=== PATIENT | female | born 1980 | race Caucasian/White ===

== ENCOUNTER 2016-08-12 02:25 | Inpatient (IN) | payer OTHER ==
[2016-08-12 02:59] LABS: APPEARANCE,URINE CLEAR; BILIRUBIN,URINE NEGATIVE (NEGATIVE); GLUCOSE, URINE NEGATIVE (NEGATIVE); KETONES,URINE NEGATIVE (NEGATIVE); LEUKOCYTE ESTERASE,URINE NEGATIVE (NEGATIVE); NITRITE,URINE NEGATIVE (NEGATIVE); PROTEIN,URINE NEGATIVE (NEGATIVE); URINE SPECIFIC GRAVITY 1.008; UROBILINOGEN,URINE NEGATIVE mg/dL (<2.0)
[2016-08-12 03:39] LABS: ABSOLUTE EOSINOPHILS # (AUTO) 0.1 10^3/uL (0.0-0.6); ABSOLUTE LYMPHOCYTES (AUTO) 2.6 10^3/uL (0.5-4.7); ABSOLUTE MONOCYTES (AUTO) 0.7 10^3/uL (0.1-1.4); ABSOLUTE NEUT (AUTO) 10.2 10^3/uL (1.7-8.2); BASOPHILS % (AUTO) 0.3 % (0-2); EOSINOPHILS % (AUTO) 0.8 % (0-6); HEMOGLOBIN 12.8 g/dL (12.0-15.5); HGB HCT DIFFERENCE 0.4; LYMPHOCYTES % (AUTO) 18.9 % (13-45); MEAN CORPUSCULAR HEMOGLOBIN 27.8 pg (27.0-33.4); MEAN CORPUSCULAR HGB CONC 33.5 g/dL (32.0-36.0); MEAN CORPUSCULAR VOLUME 83 fl (80-97); MONOCYTES % (AUTO) 5.1 % (3-13); RED BLOOD COUNT 4.58 10^6/uL (3.72-5.28); RED CELL DISTRIBUTION WIDTH 13.9 % (11.5-14.0); SEGMENTED NEUTROPHILS % (AUTO) 74.9 % (42-78); WHITE BLOOD COUNT 13.7 10^3/uL (4.0-10.5)
[2016-08-12 03:40] LABS: URINE BARBITURATES SCREEN NEGATIVE; URINE METHADONE SCREEN NEGATIVE; URINE OPIATES LOW NEGATIVE; URINE PHENCYCLIDINE SCREEN NEGATIVE
[2016-08-12] MEDS ORDERED: OXYTOCIN/NORMAL SALINE 0 UNIT/0 ML RTUINJ ONE (04:20)
[2016-08-12] MEDS ORDERED: LIDOCAINE 1% INJ-PF (10 MG/ML) 30 ML SDV ONE (04:20)
[2016-08-12] MEDS ORDERED: MISOPROSTOL 0.2 MG TABLET ONE (04:20)
[2016-08-12] MEDS ORDERED: CITRIC ACID/SODIUM CITRATE ORAL SOLN 15 ML UDCUP ONE (04:41)
[2016-08-12] MEDS ORDERED: CEFAZOLIN 2 GM/D5W RTU 2 GM/50 ML RTUPB IV ONE (04:41)
[2016-08-12] MEDS ORDERED: MEASLES,MUMPS&RUBELLA VACC/PF 0.5 ML VIAL SUBCUT PRN (04:49)
[2016-08-12] MEDS ORDERED: RINGERS SOLUTION,LACTATED 1,000 ML IV PRN (04:49)
[2016-08-12] MEDS ORDERED: ACETAMINOPHEN 325 MG TABLET PO PRN (04:49)
[2016-08-12] MEDS ORDERED: DIPH/PERTUSS(ACELL)/TETANUS VAC/PF 0.5 ML SYR (>=10YO) IM PRN (04:49)
[2016-08-12] MEDS ORDERED: SIMETHICONE 80 MG TAB.CHEW PO PRN (04:49)
[2016-08-12] MEDS ORDERED: PROMETHAZINE HCL INJ 25 MG/1 ML VIAL IV PRN ×2 (04:49→05:44)
[2016-08-12] MEDS ORDERED: OXYCODONE-ACETAMINOPHEN 5-325 MG TABLET PO PRN (04:49)
[2016-08-12] MEDS ORDERED: OXYTOCIN/NORMAL SALINE 1,000 ML IV PRN (04:49)
[2016-08-12] MEDS ORDERED: ACETAMINOPHEN 100 ML IV PRN (04:49)
[2016-08-12] MEDS ORDERED: EPHEDRINE SULFATE INJ 50 MG/1 ML AMPULE ONE (04:50)
[2016-08-12] MEDS ORDERED: OXYTOCIN 10 UNIT/ML VIAL ONE (04:50)
[2016-08-12] MEDS ORDERED: FENTANYL CITRATE INJ/PF 250 MCG/5 ML AMPULE ONE (04:50)
[2016-08-12] MEDS ORDERED: OXYTOCIN/NORMAL SALINE 20 UNIT/1,000 ML RTUINJ ONE ×2 (04:51→05:54)
[2016-08-12] MEDS ORDERED: ONDANSETRON HCL INJ/PF 4 MG/2 ML SDV ONE (04:51)
[2016-08-12] MEDS ORDERED: MIDAZOLAM 2 MG/2 ML INJ ONE (04:51)
--- NOTE | 2016-08-12 05:43 | Operative Report ---
Operative Report DATE OF SURGERY: 08/12/16 PREOPERATIVE DIAGNOSIS: Repeat to prevent risk of uterine rupture POSTOPERATIVE DIAGNOSIS: Same OPERATION: Repeat via low transverse transverse uterine incision and tubal ligation with Filshie clips SURGEON: MAX RAAUZ ANESTHESIA: Spinal TISSUE REMOVED OR ALTERED: Placenta COMPLICATIONS: None ESTIMATED BLOOD LOSS: 250 mL INTRAOPERATIVE FINDINGS: Viable female Apgars 8 and 9 normal tubes and ovaries PROCEDURE: Patient was taken to the OR and placed in supine position after her spinal anesthesia. She is prepared and draped in sterile fashion. Michel was placed for drainage of the bladder. Low transverse incision was made and carried down the level of the fascia. The fascial incision was made with knife and extended bilaterally with curved Bowser scissors. The fascia was off the rectus muscles using sharp and blunt dissection. The rectus muscles are in the midline. The peritoneum was entered without incident. Bladder blade was placed in uterine segment was identified. A low transverse incision was made creating a bladder flap. Bladder blade was placed low transverse uterine incision was made with the c safe knife and extended with fingertips. The baby was delivered with some fundal pressure. Mouth and nose were suctioned free. The cord is doubly clamped and cut. Baby is passed off to the duty officer in attendance. The placenta was manually extracted with trailing membranes. The uterus was externalized wrapped in a moist lap sponge. Uterine contents wiped free. Uterus was closed with a running locking layer of 0 chromic suture using the second layer to imbricate the first completing a double layer closure of the uterus. The serosa was closed with a running 2-0 chromic stitch. Filshie clips were placed on the fallopian tubes bilaterally. The pelvis was irrigated and suctioned free of fluid the uterus was replaced in the abdomen. The abdominal wall peritoneum was closed with running 2-0 chromic stitch. Fascia was closed with a running 0 Vicryl in 2 segments. Ann's layer was brought together with 0 plain gut stitch and the skin was closed with skin marvin. The wound was dressed mother and baby did well.
[2016-08-12] MEDS ORDERED: MORPHINE SULFATE 10 MG/ML INJ IV PRN (05:44)
[2016-08-12] MEDS ORDERED: FENTANYL CITRATE INJ/PF 100 MCG/2 ML AMPUL IV PRN ×3 (05:44)
[2016-08-12] MEDS ORDERED: MEPERIDINE HCL/PF INJ 25 MG/1 ML DISP.SYRIN IV PRN (05:44)
[2016-08-12] MEDS ORDERED: NALBUPHINE HCL INJ 10 MG/1 ML AMPULE IM ONE (05:45)
[2016-08-12] MEDS ORDERED: NALBUPHINE HCL INJ 10 MG/1 ML AMPULE ONE (05:55)
--- NOTE | 2016-08-12 06:42 | Delivery Summary ---
Del Sum A-C Datetime Report Generated by CPN: 08/12/2016 06:42 ADMISSION DATA Chief Complaint: Uterine Contractions; Scheduled Section Admission Impression: Term, Intrauterine ; Active Labor; Intact Membranes Admit Provider Comments: 35yo at 38+0ega presents for active labor and regular uterine ctx. c/b A1GDM. GBS negative. She has a h/o prior c/s due to CPD with 7#9oz (arrest of descent). She arrived at 3cm and quickly changed to /BB. US done with vertex presentation. EFW 7#. Will plan for epidural anesthesia and bolus when able to get into OR. CAT I FHR tracing. Reassuring FWB. She is consented for vaginal delivery and for RELTCS with BTL. DELIVERY PERSONNEL Delivery Doctor:: Kyler Aguilar MD Anesthesiologist:: Daisy Moreno MD RELAY CHECKER:: Azeem Cruz CRNA Labor and Delivery Nurse:: Lora Pettit RN Labor and Delivery Nurse:: Leno Menon RN Neonatal Nurse Practitioner:: ROCIO Ortega Nursery Nurse:: Josy Huertas RN Roof Panel Hanger/COGENERATION OPERATOR: ST Debi Roof Panel Hanger/COGENERATION OPERATOR: ST Tc Additional Personnel: : Jason Brown CNA MATERNAL INFORMATION Delivery Anesthesia: Spinal Medications After Delivery: Pitocin Drip 20 Units/1000ml NSS Estimated Blood Loss (ml): 600 Maternal Complications: None LABOR SUMMARY EDC: 08/26/2016 00:00 No. Babies in Womb: 1 Attempted: No Labor Anesthesia: None LABOR INFORMATION Reason for Induction: Not Applicable Oxytocin: N/A Group B Beta Strep: Negative Antibiotics # of Doses: 0 Steroids Given: None Reason Steroids Not Administered: Not Applicable MEMBRANES Membranes Rupture Method: Artificial Rupture of Membranes: 08/12/2016 05:17 Length of Rupture (hr): 0.00 Amniotic Fluid Color: Clear Amniotic Fluid Amount: Moderate Amniotic Fluid Odor: Normal STAGES OF LABOR Stage 3 hr: 0 Stage 3 min: 0 VAGINAL DELIVERY Episiotomy: None Laceration Extension: N/A Laceration Type: None Laceration Repair: Not Applicable Sponge Count Correct: N/A Sharps Count Correct: N/A CSECTION DELIVERY Primary Indication: Repeat CSection Urgency: Non-Scheduled CSection Incidence: Repeat Labor: Labor Elective: Nonelective CSection Incision: Lower Uterine Transverse Other Sterilization Procedure: Felshie BABY A INFORMATION Delivery Date/Time: 08/12/2016 05:17 Method of Delivery: Born in Route : No : N/A Forceps: N/A Vacuum Extraction: N/A Shoulder Dystocia : No PRESENTATION/POSITION BABY A Presentation: Cephalic Cephalic Presentation: Vertex Breech Presentation: N/A PLACENTA INFORMATION BABY A Placenta Delivery Time : 08/12/2016 05:17 Placenta Method of Delivery: Manual Removal Placenta Status: Delivered SCORES BABY A Heart Rate 1 min: >100 bpm Resp Effort 1 min: Good Cry Reflex Irritability 1 min: Cough or Sneeze or Pulls Away Muscle Tone 1 min: Active Motion Color 1 min: Blue/Pale SCORE 1 MIN: 8 Heart Rate 5 min: >100 bpm Resp Effort 5 min: Good Cry Reflex Irritability 5 min: Cough or Sneeze or Pulls Away Muscle Tone 5 min: Active Motion Color 5 min: Body [place], Extremities Blue SCORE 5 MIN: 9 INFANT INFORMATION BABY A Gestational Age at Delivery: 38.0 Gestational Status: Early Term- 37- 38.6 Weeks Infant Outcome : Liveborn Infant Condition : Stable Sex: Female IDENTIFICATION BABY A Infant Verification Date/Time: 08/12/2016 05:23 ID Band Number: [id number] Mother's Name Verified: Yes RN Verifying : B MARYANA House Additional Verifying Personnel: Donovan Ennis RN WEIGHT/LENGTH BABY A Infant Birthweight (gm): 2920 Weight (lb): 6 Infant Weight (oz): 7 Infant Length (in): 19.50 Length (cm): 49.53 CORD INFORMATION BABY A No. Cord Vessels: 3 Nuchal Cord : N/A Cord Blood Taken: Yes-For Storage (Mom's Blood type +) Suction: Mouth; Nose ASSESSMENT BABY A Infant Complications: None Physical Findings at Delivery: Within Normal Limits; Bruising Respirations: Appears Normal Transport Medic/ALS Called : No Care By: Velia Huertas RN and ROCIO Machuca Transferred To: Nursery BABY B INFORMATION : N/A
[2016-08-12] MEDS ORDERED: KETOROLAC TROMETHAMINE INJ/PF 30 MG/1 ML SDV ONE (07:02)
[2016-08-12] MEDS ORDERED: ACETAMINOPHEN 100 ML IV ONE (07:02)
[2016-08-12] MEDS: KETOROLAC TROMETHAMINE INJ/PF 30 MG/1 ML SDV IV SCH ×3 (07:04→21:21)
[2016-08-12] MEDS ORDERED: MEPERIDINE HCL/PF INJ 25 MG/1 ML DISP.SYRIN ONE (07:20)
--- NOTE | 2016-08-12 08:02 | L&D Flow Sheet ---
LD Flowsheet Datetime Report Generated by CPN: 08/12/2016 08:00 Datetime: 08/12/2016 07:45 NBP Sys/[place]/Mean (mmHg): 110 (Hollie Cherry, RN) : 74 (Hollie Cherry, RN) : 87 (Hollie Cherry, RN) Pulse: 86 (Hollie Cherry, RN) Respirations: 16 (Hollie Cherry, RN) SpO2 (%): 100 (Hollie Cherry, RN) Datetime: 08/12/2016 07:30 NBP Sys/[place]/Mean (mmHg): 116 (Hollie Cherry, RN) : 75 (Hollie Cherry, RN) : 90 (Hollie Cherry, RN) Pulse: 85 (Hollie Cherry, RN) Respirations: 16 (Hollie Cherry, RN) SpO2 (%): 99 (Holliefei Cherry, RN) Datetime: 08/12/2016 07:20 NBP Sys/[place]/Mean (mmHg): 113 (Hollie Cherry, RN) : 73 (Hollie Cherry, RN) : 86 (Hollie Cherry, RN) Pulse: 82 (Hollie Cherry, RN) Respirations: 15 (Hollie Cherry, RN) SpO2 (%): 100 (Hollie Cherry, RN) Datetime: 08/12/2016 07:05 NBP Sys/[place]/Mean (mmHg): 115 (Lora Lattibeaudeir, RN) : 73 (Lora Lattibeaudeir, RN) : 87 (Lora Lattibeaudeir, RN) Pulse: 87 (Lora Lattibeaudeir, RN) Respirations: 20 (Lora Lattibeaudeir, RN) SpO2 (%): 99 (Lora Lattibeaudeir, RN) Datetime: 08/12/2016 06:50 NBP Sys/[place]/Mean (mmHg): 111 (Lora Lattibeaudeir, RN) : 67 (Lora Lattibeaudeir, RN) : 88 (Lora Lattibeaudeir, RN) Pulse: 84 (Lora Lattibeaudeir, RN) Respirations: 15 (Lora Lattibeaudeir, RN) SpO2 (%): 100 (Lora Lattibeaudeir, RN) Datetime: 08/12/2016 06:45 NBP Sys/[place]/Mean (mmHg): 108 (Lora Lattibeaudeir, RN) : 76 (Lora Lattibeaudeir, RN) : 88 (Lora Lattibeaudeir, RN) Pulse: 93 (Lora Lattibeaudeir, RN) Respirations: 17 (Olra Lattibeaudeir, RN) SpO2 (%): 100 (Lora Lattibeaudeir, RN) Datetime: 08/12/2016 06:40 NBP Sys/[place]/Mean (mmHg): 108 (Lora Lattibeaudeir, RN) : 61 (Lora Lattibeaudeir, RN) : 78 (Lora Lattibeaudeir, RN) Pulse: 95 (Lora Lattibeaudeir, RN) Respirations: 16 (Lora Lattibeaudeir, RN) SpO2 (%): 100 (Lora Lattibeaudeir, RN) Datetime: 08/12/2016 06:30 Vital Signs Stage of : Recovery (Lora Lattibeaudeir, RN) NBP Sys/[place]/Mean (mmHg): 127 (Lora Lattibeaudeir, RN) : 75 (Lora Lattibeaudeir, RN) : 92 (Loar Lattibeaudeir, RN) Pulse: 86 (Lora Lattibeaudeir, RN) Respirations: 16 (Lora Lattibeaudeir, RN) SpO2 (%): 99 (Lora Lattibeaudeir, RN) Datetime: 08/12/2016 06:20 NBP Sys/[place]/Mean (mmHg): 106 (Lora Lattibeaudeir, RN) : 55 (Lora Lattibeaudeir, RN) : 91 (Lora Lattibeaudeir, RN) Pulse: 88 (Lora Lattibeaudeir, RN) Respirations: 16 (Lora Lattibeaudeir, RN) SpO2 (%): 100 (Lora Lattibeaudeir, RN) Datetime: 08/12/2016 06:15 NBP Sys/[place]/Mean (mmHg): 91 (Lora Lattibeaudeir, RN) : 71 (Lora Lattibeaudeir, RN) : 80 (Lora Lattibeaudeir, RN) Pulse: 102 (Lora Lattibeaudeir, RN) Respirations: 16 (Lora Lattibeaudeir, RN) SpO2 (%): 99 (Lora Lattibeaudeir, RN) Datetime: 08/12/2016 06:10 NBP Sys/[place]/Mean (mmHg): 103 (Lora Lattibeaudeir, RN) : 63 (Lora Lattibeaudeir, RN) : 77 (Lora Lattibeaudeir, RN) Pulse: 83 (Lora Lattibeaudeir, RN) SpO2 (%): 100 (Lora Lattibeaudeir, RN) Datetime: 08/12/2016 05:55 NBP Sys/[place]/Mean (mmHg): 79 (Lora Lattibeaudeir, RN) : 41 (Lora Lattibeaudeir, RN) Pulse: 84 (Lora Lattibeaudeir, RN) SpO2 (%): 100 (Lora Lattibeaudeir, RN) Datetime: 08/12/2016 05:50 NBP Sys/[place]/Mean (mmHg): 96 (Lora Lattibeaudeir, RN) : 58 (Lora Lattibeaudeir, RN) Datetime: 08/12/2016 05:43 Vital Signs Stage of : Recovery (Lora Lattibeaudeir, RN) NBP Sys/[place]/Mean (mmHg): 95 (Lora Lattibeaudeir, RN) : 56 (Lora Lattibeaudeir, RN) : 71 (Olra Lattibeaudeir, RN) Pulse: 85 (Lora Lattibeaudeir, RN) Respirations: 14 (Lora Lattibeaudeir, RN) SpO2 (%): 99 (Lora Lattibeaudeir, RN) Temperature (F): 98.1 (Lora Lattibeaudeir, RN) Temperature (C): 36.7 (QS system process) Temperature Route: Oral (Lora Lattibeaudeir, RN) Pain Pain Scale: 0 (Lora Lattibeaudeir, RN) Pain Presence: None/Denies (Lora Lattibeaudeir, RN) Pain Type: N/A (Lora Lattibeaudeir, RN) Datetime: 08/12/2016 04:59 Patient Care Comments: Pt transported to OR for (Lora Lattibeaudeir, RN) Datetime: 08/12/2016 04:57 Uterine Activity Monitor Mode: External (Lora Lattibeaudeir, RN) Frequency (min): 2-3 (Lora Lattibeaudeir, RN) Quality: Moderate (Lora Lattibeaudeir, RN) Duration (sec): 80-110 (Lora Lattibeaudeir, RN) Resting Tone (Palpate): Relaxed (Lora Lattibeaudeir, RN) Assessment A Monitor Mode: External US (Lora Lattibeaudeir, RN) FHR Baseline Rate : 160 (Lora Lattibeaudeir, RN) Variability: Moderate 6-25 bpm (Lora Lattibeaudeir, RN) Accelerations: 15X15 (Lora Lattibeaudeir, RN) Decelerations: Variable (Lora Lattibeaudeir, RN) Datetime: 08/12/2016 04:49 I/O Interventions: Michel Cath Inserted (Leno Lynsey, RN) Datetime: 08/12/2016 04:40 Medications Antiemetics/Antacids: Bicitra 15 ml PO (Leno Lynsey, RN) Datetime: 08/12/2016 04:30 Uterine Activity Monitor Mode: External (Lora Lattibeaudeir, RN) Frequency (min): 2-2.5 (Lora Lattibeaudeir, RN) Quality: Moderate (Lora Lattibeaudeir, RN) Duration (sec): 70-90 (Lora Lattibeaudeir, RN) Resting Tone (Palpate): Relaxed (Lora Lattibeaudeir, RN) Assessment A Monitor Mode: External US (Lora Lattibeaudeir, RN) FHR Baseline Rate : 140 (Lora Lattibeaudeir, RN) Variability: Moderate 6-25 bpm (Lora Lattibeaudeir, RN) Accelerations: 15X15 (Lora Lattibeaudeir, RN) Datetime: 08/12/2016 04:11 Communication Communication Comments: Dr. [place] at bedside discussing anesthesia. (Leno Lynsey, RN) Datetime: 08/12/2016 04:04 Vaginal Exam Dilatation (cm): 6.0 (Leno Menon, RN) Vaginal Exam Comments: Dr. Alexis (Leno Menon, RN) Datetime: 08/12/2016 04:00 Uterine Activity Monitor Mode: External (Lora Pettit RN) Frequency (min): 2-2.5 (Lora Pettit RN) Frequency (min): 2-2 (Lora Pettit RN) Quality: Moderate (Lora Lattibeaudeir, RN) Duration (sec): 60-100 (Lora Lattibeaudeir, RN) Resting Tone (Palpate): Relaxed (Lora Lattibeaudeir, RN) Assessment A Monitor Mode: External US (Lora Lattibeaudeir, RN) FHR Baseline Rate : 145 (Lora Lattibeaudeir, RN) Variability: Moderate 6-25 bpm (Lora Lattibeaudeir, RN) Accelerations: 15X15 (Lora Lattibeaudeir, RN) Decelerations: Variable (Lora Lattibeaudeir, RN) Datetime: 08/12/2016 03:52 Patient Care IV/Blood Work: IV Started; IV Bolus Started (Leno Menon RN) Procedures: Consents Signed; Labs Drawn (Leno Menon, MARYANA) Patient Position/Activity: Left Tilt (Leno Menon, RN) Datetime: 08/12/2016 03:30 Uterine Activity Monitor Mode: External (Lora Lattibeaudeir, RN) Frequency (min): 2-3.5 (Lora Lattibeaudeir, RN) Quality: Moderate (Lora Lattibeaudeir, RN) Duration (sec): 80-90 (Lora Lattibeamariamir, RN) Resting Tone (Palpate): Relaxed (Lora Lattibeaudeir, RN) Assessment A Monitor Mode: External US (Lora Lattibmariam, RN) FHR Baseline Rate : 130 (Lora Lattibeaude, RN) Variability: Moderate 6-25 bpm (Lora Lattibeaudeir, RN) Accelerations: 15X15 (Lora Lattibeaudeir, RN) Datetime: 08/12/2016 03:00 Vaginal Exam Dilatation (cm): 3.0 (Leno Menon RN) Effacement (%): 80 (Leno Menon RN) Exam by: MARYANA Hdz (Leno Menon RN) Vaginal Bleeding: Normal Show (Leno Menon RN) Datetime: 08/12/2016 02:52 NBP Sys/[place]orro/Mean (mmHg): 112 (QS system process) : 74 (QS system process) : 88 (QS system process) Pulse: 86 (QS system process) Datetime: 08/12/2016 02:45 Pain Pain Scale: 2 (Leno Menon RN) Pain Presence: Intermittent (Leno Menon RN) Pain Type: Contraction (Leno Menon RN) Pain Location: Abdomen (Leno Menon RN) Pain Coping: Talking Through Contractions; Breathing Through Contractions (Leno Menon RN) Vaginal Bleeding: Scant (Annotations: Noticed spotting ) (Leno Menon RN) Maternal Assessment Level of Consciousness: Fully Conscious (Leno Menon RN) Headache: Denies (Leno Menon RN) Nausea/Vomiting: Denies (Leno Menon RN) RUQ Epigastric Pain: Denies (Leno Menon RN) Datetime: 08/12/2016 02:37 Membranes Ruptured Date/Time: 08/12/2016 05:17 (Lora Pettit RN) Membranes Rupture Method: Artificial (Lora Pettit RN) Amniotic Fluid Color: Clear (Lora Pettit RN) Amniotic Fluid Amount: Moderate (Lora Pettit RN) Amniotic Fluid Odor: Normal (Lora Pettit RN)
--- NOTE | 2016-08-12 08:19 | Admission Physical ---
Datetime Report Generated by CPN: 08/12/2016 08:19 CURRENT ADMISSION Chief Complaint: Uterine Contractions; Scheduled Section Admit Plan: Admit to Unit; Initiate Section Protocol ALLERGIES Medication Allergies: No Medication Allergies: No Known Allergies (08/12/2016) Latex: No Latex Allergies Food Allergies: None Environmental Allergies: None OBSTETRICAL HISTORY EDC: 08/26/2016 00:00 : 2 Para: 1 Term: 1 : 0 SAB: 0 IAB: 0 Ectopic: 0 Livin Cesareans: 1 VBACs: 0 Multiple Births: 0 Current Procedures: Ultrasound; NST Obstetrical History Comments: F8-O-zhttxhy of male @39 wks--7lbs 9 oz G2-Current SEE RECORDS Alcohol: No Marijuana : No Cocaine: No Other Illicit Drugs: No Cigarettes: Never Smoker. [phone] MEDICAL HISTORY Diabetes: Yes Diabetes Type: Gestational Diabetes INFECTIOUS HISTORY Genital Herpes: Yes PHYSICAL EXAM General: Normal HEENT: Normal Neurologic: Normal Thyroid: Normal Heart: Normal Lungs: Normal Breast: Deferred Back: Normal Abdomen: Normal Genitourinary Exam: Normal Extremities: Normal DTRs: Normal Pelvic Type: Adequate Vital Signs: Reviewed VAGINAL EXAM Dilatation: 3 Effacement: 80 Station: -2 Contraction Comments: q 2-3 min MEMBRANES Membranes: Intact FETUS A EGA: 38.0 Monitoring: External US FHR- Baseline: 125 Variability: Moderate 6-25bpm Accelerations: 15X15 Decelerations: None FHR Category: Category I Presentation: Vertex Admit Comment: 35yo at 38+0ega presents for active labor and regular uterine ctx. c/b A1GDM. GBS negative. She has a h/o prior c/s due to CPD with 7#9oz (arrest of descent). She arrived at 3cm and quickly changed to 6-7/90/BB. US done with vertex presentation. EFW 7#. Will plan for epidural anesthesia and bolus when able to get into OR. CAT I FHR tracing. Reassuring FWB. She is consented for vaginal delivery and for RELTCS with BTL. PLANS FOR LABOR AND DELIVERY Labor and Delivery: None Pain Management: Epidural Feeding Preference: Breast Benefit of Breast Feed Discussed: Yes Circumcision: N/A INFORMED CONSENT Informed Consent Obtained: Vaginal Delivery; Section Delivery; Risks, Benefits and Alternatives Discussed Signature: with User ID: [email or web address]
[2016-08-12] MEDS: OXYCODONE-ACETAMINOPHEN 5-325 MG TABLET PO PRN ×2 (10:07→18:10)
[2016-08-12] MEDS: DOCUSATE SODIUM 100 MG CAPSULE PO SCH ×2 (13:10→17:21)
[2016-08-12] MEDS: PRENATAL VITAMIN W-O CA NO5/FE FUMARATE/FA CAPSULE PO SCH (13:10)
--- NOTE | 2016-08-12 19:01 | L&D Flow Sheet ---
LD Flowsheet Datetime Report Generated by CPN: 08/12/2016 19:00 Datetime: 08/12/2016 07:45 NBP Sys/[place]/Mean (mmHg): 110 (Hollie Cherry, RN) : 74 (Hollie Cherry, RN) : 87 (Hollie Cherry, RN) Pulse: 86 (Hollie Cherry, RN) Respirations: 16 (Hollie Cherry, RN) SpO2 (%): 100 (Hollie Cherry, RN) Datetime: 08/12/2016 07:30 NBP Sys/[place]/Mean (mmHg): 116 (Hollie Cherry, RN) : 75 (Hollie Cherry, RN) : 90 (Hollie Cherry, RN) Pulse: 85 (Hollie Cherry, RN) Respirations: 16 (Hollie Cherry, RN) SpO2 (%): 99 (Holliefei Cherry, RN) Datetime: 08/12/2016 07:20 NBP Sys/[place]/Mean (mmHg): 113 (Hollie Cherry, RN) : 73 (Hollie Cherry, RN) : 86 (Hollie Cherry, RN) Pulse: 82 (Hollie Cherry, RN) Respirations: 15 (Hollie Cherry, RN) SpO2 (%): 100 (Hollie Cherry, RN) Datetime: 08/12/2016 07:05 NBP Sys/[place]/Mean (mmHg): 115 (Lora Lattibeaudeir, RN) : 73 (Lora Lattibeaudeir, RN) : 87 (Lora Lattibeaudeir, RN) Pulse: 87 (Lora Lattibeaudeir, RN) Respirations: 20 (Lora Lattibeaudeir, RN) SpO2 (%): 99 (Lora Pettit RN)
[2016-08-13] MEDS: OXYCODONE-ACETAMINOPHEN 5-325 MG TABLET PO PRN ×3 (02:52→18:27)
[2016-08-13] MEDS: IBUPROFEN 800 MG TABLET PO SCH ×4 (06:01→23:56)
--- NOTE | 2016-08-13 06:01 | L&D General Admission ---
General Admit Datetime Report Generated by CPN: 08/13/2016 06:00 INFORMATION Patient Age: 35 (06/23/2016 15:24:QS system process) EDC: 08/26/2016 00:00 (08/12/2016 02:37:Lora Pettit RN) : 2 (08/12/2016 02:37:Lora Pettit RN) Para: 1 (08/12/2016 02:37:Lora Pettit RN) Term: 1 (08/12/2016 02:37:Lora Pettit RN) : 0 (08/12/2016 02:37:Lora Pettit RN) Spontaneous Abortions: 0 (08/12/2016 02:37:Lora Pettit RN) Induced Abortions: 0 (08/12/2016 02:37:Lora Pettit RN) Livin (08/12/2016 02:37:Lora Pettit RN) Cesareans: 1 (08/12/2016 02:37:Lora Pettit RN) VBACs: 0 (08/12/2016 02:37:Lora Pettit RN) Ectopic: 0 (08/12/2016 02:37:Lora Pettit RN) Multiple Births: 0 (08/12/2016 02:37:Lora Pettit RN) Baby, Number in Womb: 1 (08/12/2016 02:37:Lora Pettit RN) CARE Primary Drawer In Jacquard Loom: [facility] (08/12/2016 02:37:Lora Pettit RN) Adequate Care: Yes (08/12/2016 02:37:Leno Menon RN) Prepregnancy Weight (lb): 136 (08/12/2016 02:37:Lora Pettit RN) Prepregnancy Weight (kg): 61.8 (08/12/2016 02:37:QS system process) Height (in): 67 (08/12/2016 10:29:QS system process) ALLERGIES Medication Allergy: No (08/12/2016 02:37:Leno Menon RN) Medication Allergies: No Known Allergies (08/12/2016) (08/12/2016 02:37:QS system process) Latex Allergy: No Latex Allergies (08/12/2016 02:37:Leno Menon RN) Food Allergies: None (08/12/2016 02:37:Leno Menon RN) Environmental Allergies: None (08/12/2016 02:37:Leno Menon RN) COMMUNICATION Primary Language: Singaporean (08/12/2016 02:37:Lora Pettit RN) Medical Tx Preferred Language: Singaporean (08/12/2016 02:37:Lora Pettit RN) Communication Barrier(s): None (08/12/2016 02:37:oLra Pettit RN) DEMOGRAPHICS Address: [address] [place] [id number] (07/17/2016 18:25:QS system process) Zipcode: [address] (07/17/2016 18:25:QS system process) Home (06/23/2016 15:24:QS system process) N: [phone] (06/23/2016 15:24:QS system process) Next of Kin Name: JEFFREY SEVILLA (07/17/2016 18:25:QS system process) Next of Kin (07/17/2016 18:25:QS system process) Next of Kin Relationship: SPO (07/17/2016 18:25:QS system process) Date of : 1980 (06/23/2016 15:24:QS system process) Marital Status: (07/17/2016 18:25:QS system process) Sex: Female (06/23/2016 15:24:QS system process) Race: (07/17/2016 18:25:QS system process) Ethnicity: Non- or (06/23/2016 15:24:QS system process) Anglican: None (07/17/2016 18:25:QS system process) DRUG AND ALCOHOL USE Alcohol: No (08/12/2016 02:37:Leno Menon RN) Cigarettes: Never Smoker. [phone] (08/12/2016 02:37:Leno Menon RN) Marijuana: No (08/12/2016 02:37:Leno Menon RN) Cocaine: No (08/12/2016 02:37:Leno Menon RN) Other Illicit Drugs: No (08/12/2016 02:37:Leno Menon RN) VACCINE HISTORY Influenza Vaccine: Yes (08/12/2016 02:37:Leno Menon RN) Influenza Date: 03/18/2016 (08/12/2016 02:37:Leno Menon RN) Pneumococcal Vaccine: No (08/12/2016 02:37:Leno Menon RN) Tetanus Vaccine: Yes (08/12/2016 02:37:Leno Menon RN) Tetanus Date: 2015 (08/12/2016 02:37:Leno Menon RN) Tdap Vaccine: Yes (08/12/2016 02:37:Leno Menon RN) Tdap Date: 2016 (08/12/2016 02:37:Leno Menon RN) Hepatitis B Vaccine: No (08/12/2016 02:37:Leno Menon RN) Manager Economic: [facility] (08/12/2016 02:37:Leno Menon RN) Feeding Preference: Breast (08/12/2016 02:37:Leno Menon RN) Benefit of Breast Feed Discussed: Yes (08/12/2016 02:37:Leno Menon RN) Circumcision: N/A (08/12/2016 02:37:Leno Menon RN) Classes Attended: Sylvia (08/12/2016 02:37:Leno Menon RN) Tubal Ligation: No (08/12/2016 02:37:Leno Menon RN) Tubal Authorization Signed: N/A (08/12/2016 02:37:Leno Menon RN) Consent: N/A (08/12/2016 02:37:Leno Menon RN) Consent Signed: N/A (08/12/2016 02:37:Leno Menon RN) Pain Management Plans: Epidural (08/12/2016 02:37:Leno Menon RN) Plans for Labor and Delivery: None (08/12/2016 02:37:Leno Menon RN) Support Person: Jeffrey Sevilla (08/12/2016 02:37:Leno Menon RN) Support Person Relationship: (08/12/2016 02:37:Leno Menon RN) Cultural/Spritual Practice: Sylvia (08/12/2016 02:37:Leno Menon RN) Spir/Cult Dietary Needs: No (08/12/2016 02:37:Leno Menon RN) LIVING SITUATION/DISCHARGE PLAN Living Arrangements: House (08/12/2016 02:37:Leno Menon RN) Adequate Access to:: Electric; Heat; Refrigeration; Plumbing/Running water; Phone; Transportation (08/12/2016 02:37:Leno Menon RN) WIC Program: [facility]via (08/12/2016 02:37:Leno Menon RN) Discharge Student Teaching Coordinator Person: Jeffrey Sevilla (08/12/2016 02:37:Leno Menon RN) Person to Help after Discharge: Jeffrey Sevilla (08/12/2016 02:37:Leno Menon RN) Currently Using Commun Resources: No (08/12/2016 02:37:Leno Menon RN) Outside Agency/Computer Network Specialist: No (08/12/2016 02:37:Leno Menon RN) Car Seat for Discharge: Yes (08/12/2016 02:37:Leno Menon RN) Adoption Requested: No (08/12/2016 02:37:Leno Menon RN) Pt Contact w/ Post : N/A (08/12/2016 02:37:Leno Menon RN) LABS Blood Type: A Positive (08/12/2016 02:37:Lora Pettit RN) Antibody Screen: Negative (08/12/2016 02:37:Lora Pettit RN) Rho(G) this : Not Applicable (08/12/2016 02:37:Lora Pettit RN) Hemoglobin: 12.8 (08/12/2016 03:30:QS system process) Hematocrit: 36.0-47.0 % (08/13/2016 06:01:QS system process) MCV: 83 (08/12/2016 03:30:QS system process) Group Beta Strep: Negative (08/12/2016 02:37:Lora Pettit RN) Gonorrhea: Negative (08/12/2016 02:37:Lora Pettit RN) Chlamydia: Negative (08/12/2016 02:37:Lora Pettit RN) RPR/VDRL: Nonreactive (08/12/2016 02:37:Lora Pettit RN) HIV Results: Negative (08/12/2016 02:37:Lora Pettit RN) Hepatitis B: Negative (08/12/2016 02:37:Lora Pettit RN) Rubella: Immune (08/12/2016 02:37:Lora Pettit RN) Pap Test: Normal (08/12/2016 02:37:Lora Pettit RN) OB/PREVIOUS HISTORY Previous Procedures: Ultrasound; NST (08/12/2016 02:37:Lora Pettit RN) Current Procedures: Ultrasound; NST (08/12/2016 02:37:Lora Pettit RN) Comments Obstetrical History: R2-D-qtrjnyx of male @39 wks--7lbs 9 oz G2-Current (08/12/2016 02:37:Lora Pettit RN) MEDICAL HISTORY Med Hx Diabetes: Yes (08/12/2016 02:37:Lora Pettit RN) Diabetes Type: Gestational Diabetes (08/12/2016 02:37:Lora Pettit RN) INFECTIOUS HISTORY Inf Hx Pt/Partner Genital Herpes: Yes (08/12/2016 02:37:Lora Pettit RN)
--- NOTE | 2016-08-13 06:01 | L&D Current Admission ---
Current Admit Datetime Report Generated by CPN: 08/13/2016 06:00 ADMISSION INFORMATION Chief Complaint: Contractions; Vaginal Bleeding (08/12/2016 02:45:Leno Menon RN)
[2016-08-13 07:51] LABS: HEMATOCRIT 30.2 % (36.0-47.0); HGB HCT DIFFERENCE 0.4; MEAN CORPUSCULAR HEMOGLOBIN 28.1 pg (27.0-33.4); MEAN CORPUSCULAR HGB CONC 33.9 g/dL (32.0-36.0); MEAN CORPUSCULAR VOLUME 83 fl (80-97); RED BLOOD COUNT 3.64 10^6/uL (3.72-5.28); RED CELL DISTRIBUTION WIDTH 14.4 % (11.5-14.0); WHITE BLOOD COUNT 12.5 10^3/uL (4.0-10.5)
[2016-08-13 08:00] LABS: HEMOGLOBIN 10.2 g/dL (12.0-15.5)
[2016-08-13] MEDS: DOCUSATE SODIUM 100 MG CAPSULE PO SCH ×2 (10:30→17:36)
[2016-08-13] MEDS: PRENATAL VITAMIN W-O CA NO5/FE FUMARATE/FA CAPSULE PO SCH (10:30)
--- NOTE | 2016-08-13 14:21 | PDOC PROGRESS REPORT ---
Subjective-OB Subjective: Post Delivery Day: 35 year old. Denies any needs at this time pt sitting up binder in place abdomen soft bs x 4 +flatus bonding well with infant anticipate d/c in AM Physical Exam (OB) Vital Signs: Temp Pulse Resp BP Pulse Ox 98.1 F 81 16 94/53 L 98 08/13/16 08:06 08/13/16 08:06 08/13/16 08:06 08/13/16 08:06 08/13/16 08:06 Intake & Output 08/12/16 08/13/16 08/14/16 06:59 06:59 06:59 Intake Total 1650 Output Total 2900 Balance -1250 Weight 73.9 kg - Dressing Removed: Yes Incision: Well Approximated Closure Type: Charlie - Lochia Lochia Amount: Scant < 10 ml Lochia Color: Rubra/Red - Abdomen Description: Soft, Round Hernia Present: No Fundal Description: Firm, Midline Fundal Height: u/u - u/2 Objective-Diagnostic Laboratory: 08/13/16 07:08 08/13/16 07:08 WBC 12.5 H RBC 3.64 L Hgb 10.2 L D Hct 30.2 L MCV 83 MCH 28.1 MCHC 33.9 RDW 14.4 H Plt Count 159
[2016-08-14] MEDS: IBUPROFEN 800 MG TABLET PO SCH ×2 (06:13→11:57)
[2016-08-14] MEDS: OXYCODONE-ACETAMINOPHEN 5-325 MG TABLET PO PRN (06:46)
[2016-08-14 08:31] VITALS: BP 102/72
--- NOTE | 2016-08-14 08:43 | PDOC PROGRESS REPORT ---
Subjective-OB Subjective: Post Delivery Day: 35 year old. Denies any needs at this time. Ready to go home. Physical Exam (OB) Vital Signs: Temp Pulse Resp BP Pulse Ox 97.7 F 72 16 101/66 98 08/14/16 08:03 08/14/16 08:03 08/14/16 08:03 08/14/16 08:03 08/14/16 08:03 Intake & Output 08/13/16 08/14/16 08/15/16 06:59 06:59 06:59 Intake Total 1650 Output Total 2900 Balance -1250 - Dressing Removed: Yes Incision: Well Approximated Closure Type: Charlie - Lochia Lochia Amount: Scant < 10 ml Lochia Color: Rubra/Red - Abdomen Description: Tender, Soft, Round Hernia Present: No Bowel Sounds: Normoactive Flatus Presence: Present Stool: No Fundal Description: Firm, Midline Fundal Height: u/u - u/2 Objective-Diagnostic Laboratory: 08/13/16 07:08
--- NOTE | 2016-08-14 08:53 | PDOC DISCHARGE SUMMARY ---
Final Diagnosis Discharge Date: 08/14/16 - Final Diagnosis (1) AMA (advanced maternal age) multigravida 35+ Is this a current diagnosis for this admission?: Yes (2) Delivery by emergency caesarean section Is this a current diagnosis for this admission?: Yes (3) GDM (gestational diabetes mellitus), class A1 Is this a current diagnosis for this admission?: Yes (4) History of herpes genitalis Is this a current diagnosis for this admission?: Yes (5) Is this a current diagnosis for this admission?: Yes Discharge Data - Discharge Medication Home Medications: Cmb#95/Iron/FA/Dha [ + Dha Combo Pack] 1 each PO DAILY Docusate Sodium [Colace 100 mg Capsule] 100 mg PO BID #30 capsule 08/14/16 Ibuprofen [Motrin 800 mg Tablet] 800 mg PO Q6 #30 tablet 08/14/16 Oxycodone HCl/Acetaminophen [Percocet 5-325 mg Tablet] 1 tab PO Q4HP PRN #20 tablet 08/14/16 Gestational Age: 38 Reason(s) for Admission: Onset of Labor Procedures: NST Intrapartum Procedure(s): : Low Cervical, Transverse - Data Baby 1 Female at 1 minute: 8 at 5 minutes: 9 Weight: 2.92 kg Home with Mother: Yes Complications: No - Diagnosis Test Laboratory: Temp Pulse Resp BP Pulse Ox 97.7 F 72 16 101/66 98 08/14/16 08:03 08/14/16 08:03 08/14/16 08:03 08/14/16 08:03 08/14/16 08:03 08/12/16 08/12/16 08/13/16 02:38 03:30 07:08 RBC 4.58 3.64 L Hgb 12.8 10.2 L D Hct 38.0 30.2 L Urine Opiates Screen NEGATIVE - Discharge information/Instructions Discharge Activity: Activity As Tolerated, Balance Activity w/Rest, No Driving, No Lifting Over 10 Pounds, No Lifting/Push/Pulling, Pelvic Rest, Slowly Increase Activity, No tub bath Discharge Diet: Regular Disposition: HOME, SELF-CARE Follow up with: [facility] in: 1, Weeks
[2016-08-14] MEDS: PRENATAL VITAMIN W-O CA NO5/FE FUMARATE/FA CAPSULE PO SCH (10:11)
[2016-08-14] MEDS: DOCUSATE SODIUM 100 MG CAPSULE PO SCH (10:11)
== END 2016-08-14 13:03 | disposition home or self-care (01) | DRG 765 ==
LOC: LC 02:25 → LR 03:13 → 2S 08:17
PROVIDERS: ADMIT Obstetrics & Gynecology; ATTEND Obstetrics & Gynecology
PROC: 10D00Z1 Extraction of Products of Conception, Low, Open Approach (ICD-10-PCS; principal; 2016-08-12)
PROC: 0UL70CZ Occlusion of Bilateral Fallopian Tubes with Extraluminal Device, Open Approach (ICD-10-PCS; 2016-08-12)
PROC: 4A1HXCZ Monitoring of Products of Conception, Cardiac Rate, External Approach (ICD-10-PCS; 2016-08-12)
DX: O34.211 Maternal care for low transverse scar from previous cesarean delivery (principal); O98.32 Other infections with a predominantly sexual mode of transmission complicating childbirth; O24.429 Gestational diabetes mellitus in childbirth, unspecified control; A60.00 Herpesviral infection of urogenital system, unspecified; Z3A.38 38 weeks gestation of pregnancy; Z37.0 Single live birth
CPT/HCPCS: 1961; 36415; 80307; 81005; 85025; 85027; 86592; 86850; 86900; 86901; 94799; J0131; J0690; J1885; J2175; J2250; J2300; J2405; J2590; J3010; J3490